=== PATIENT | female | born 1990 | race Asian ===

== ENCOUNTER 2023-01-05 13:16 | Inpatient (IN) ==
[2023-01-05 13:58] LABS: Basophils # (auto) 0.03 K/uL (0.00-0.20); Basophils % (auto) 0.2 %; Eosinophils # (auto) 0.01 K/uL (0.00-0.50); Eosinophils % (auto) 0.1 %; Hematocrit (blood only) 39.5 % (37.0-47.0); Hemoglobin 13.5 g/dl (12.0-16.0); Immature Granulocytes # (auto) 0.35 K/uL (0.01-0.20); Immature Granulocytes % (auto) 2.4 %; Lymphocytes # (auto) 0.83 K/uL (1.20-3.40); Lymphocytes % (auto) 5.6 %; Mean Corpuscular Hemoglobin 29.3 pg (25.0-34.0); Mean Corpuscular Hgb Conc 34.2 g/dL (32.0-36.0); Mean Corpuscular Volume 85.9 fL (80.0-100.0); Mean Platelet Volume 10.5 fL (9.4-12.4); Monocytes # (auto) 0.72 K/uL (0.11-0.59); Monocytes % (auto) 4.9 %; Neutrophils # (auto) 12.88 K/uL (1.40-6.50); Neutrophils % (auto) 86.8 %; Platelet Count 164 K/uL (130-400); RDW Coefficient of Variation 12.1 % (11.5-14.5); White Blood Count 14.82 K/ul (4.8-10.8)
[2023-01-05 14:14] LABS: Albumin Globulin Ratio 1.3 (0.9-2); Albumin Level 4.4 gm/dl (3.4-5.0); BUN Creatinine Ratio 14.5 (10-20); Calcium 9.1 mg/dl (8.6-10.3); Creatinine Clr Calc Pharmacy 95.9 ml/min; Est GFR (African American) 119.5 ml/min; Est GFR (Non-African American) 103.1 ml/min; Globulin 3.5 gm/dl (2.5-4.0); Potassium 3.5 mmol/L (3.5-5.1); Total Protein 7.9 gm/dl (6.0-8.3)
[2023-01-05] MEDS ORDERED: SODIUM CHLORIDE 0.9% 1,000 ML IV ONE (14:23)
[2023-01-05] MEDS ORDERED: ONDANSETRON INJ 2 MG/ML 2 ML VIAL IV STA (14:23)
[2023-01-05] MEDS ORDERED: MoRPHine SULFATE 4 MG/ML 1 ML CARP\\VIAL IV STA (14:23)
--- NOTE | 2023-01-05 14:24 | Emergency Department Note ---
Impression & Plan Acute appendicitis ADMIT ED Provider Note HPI: History obtained from patient. The patient is a otherwise healthy 32yo female who presents emergency department with a chief complaint of upper abdominal pain. Patient states she has had some pain mostly in her upper abdomen since yesterday. Pain has been relatively consistent. Patient did have an episode of vomiting this morning. On arrival here to the ED the patient is hemodynamically stable, she is otherwise in no acute distress on my initial assessment. ROS: - Per HPI Differential Diagnosis: Acute cholecystitis, acute gastritis, acute pancreatitis, small bowel obstruction, diverticulitis flare, acute appendicitis, ectopic , amongst other potential pathologies. *Outpatient medications and allergy history reviewed. 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 Lab work shows a leukocytosis of 14.8, hemoglobin is normal, platelet count is normal, CMP does not show any critical findings, testing is negative. Urinalysis shows 4+ ketones but no clear evidence of infection. Urinalysis is noted to be contaminated. Patient denies any dysuria, low suspicion for UTI. CT imaging of the abdomen pelvis was obtained that shows evidence of acute appendicitis without perforation. Patient was ordered IV Zosyn and blood cultur es were ordered. I Discussed these findings with on-call general surgery, Dr. Matthews, who did evaluate the patient at the bedside for operative intervention, patient will be admitted to the general surgery service for further management. Patient and her significant other at the bedside are in agreement to the above plan and the patient was placed for admission in stable condition. Consultants/Discussions held with other healthcare providers: -General surgery, Dr. Matthews Disposition discussion held by myself with: -Patient and significant other at the bedside Diagnosis: 1. Acute appendicitis 2. Abdominal pain, acute 3. Nausea and vomiting, acute 4. Leukocytosis, acute 5. Ketonuria, acute Disposition: Admission Les Echevarria DO Emergency Medicine Past Med/Surg History Social History Smoking Status: Never smoker Feels Safe at Home: Yes Allergies Allergies Allergy/AdvReac Type Severity Reaction Status Date / Time No Known Allergies Allergy Unverified 01/05/23 16:06 Home Meds Home Medications Medication Instructions Recorded Confirmed No Known Home Medications 01/05/23 01/05/23 Results & Data (ED) Vital Signs Vital Signs - 24 hr 01/05/23 13:17 01/05/23 14:13 01/05/23 14:18 Temperature 36.7 C Temperature Source Skin Pulse Rate 60 57 L 62 Pulse Rate [Apical] Pulse Rhythm Regular Pulse Rhythm [Apical] Pulse Strength [Apical] Respiratory Rate 18 14 Respiratory Effort / Characteristics Respiratory Depth Respiratory Pattern Blood Pressure 103/68 Blood Pressure [Left Arm] Blood Pressure Mean 79 Blood Pressure Mean [Left Arm] Pulse Oximetry 100 100 Oxygen Delivery Method Room Air Sepsis Recent Fever Within 48 Hours No Sepsis New/Unexplained Change in Mental Status No Sepsis Action Taken by Nursing No Action Required 01/05/23 15:21 Temperature Temperature Source Pulse Rate Pulse Rate [Apical] 84 Pulse Rhythm Pulse Rhythm [Apical] Regular Pulse Strength [Apical] Normal Respiratory Rate 12 Respiratory Effort / Characteristics Non-Labored Spontaneous Respiratory Depth Normal Respiratory Pattern Regular Blood Pressure Blood Pressure [Left Arm] 111/75 Blood Pressure Mean Blood Pressure Mean [Left Arm] 87 Pulse Oximetry 100 Oxygen Delivery Method Room Air Sepsis Recent Fever Within 48 Hours Sepsis New/Unexplained Change in Mental Status Sepsis Action Taken by Nursing Laboratory Data 01/05/23 13:27 01/05/23 13:27 Lab Results 01/05/23 01/05/23 01/05/23 Range/Units 13:27 13:27 13:27 WBC 14.82 H (4.8-10.8) K/ul RBC 4.60 (4.20-5.40) M/uL Hgb 13.5 (12.0-16.0) g/dl Hct 39.5 (37.0-47.0) % MCV 85.9 (80.0-100.0) fL MCH 29.3 (25.0-34.0) pg MCHC 34.2 (32.0-36.0) g/dL RDW Std Deviation 38.0 (36.4-46.3) fL RDW Coeff of Talia 12.1 (11.5-14.5) % Plt Count 164 (130-400) K/uL MPV 10.5 (9.4-12.4) fL Immature Gran % (Auto) 2.4 % Neut % (Auto) 86.8 % Lymph % (Auto) 5.6 % [place] % (Auto) 4.9 % Eos % (Auto) 0.1 % Baso % (Auto) 0.2 % Neut # (Auto) 12.88 H (1.40-6.50) K/uL Lymph # (Auto) 0.83 L (1.20-3.40) K/uL [place] # (Auto) 0.72 H (0.11-0.59) K/uL Eos # (Auto) 0.01 (0.00-0.50) K/uL Baso # (Auto) 0.03 (0.00-0.20) K/uL Immature Gran # (Auto) 0.35 H (0.01-0.20) K/uL Sodium 135 L (136-145) mmol/L Potassium 3.5 (3.5-5.1) mmol/L Chloride 104 (98-107) mmol/L Carbon Dioxide 23 (21-32) mmol/L Anion Gap 8 (3-11) BUN 11 (6-23) mg/dl Creatinine 0.76 (0.6-1.2) mg/dl Est Cr Clr Drug Dosing 95.9 ml/min Est GFR ( Amer) 119.5 ml/min Est GFR (Non-Af Amer) 103.1 ml/min BUN/Creatinine Ratio 14.5 (10-20) Glucose 109 H (70-99(Fasting)) mg/dl Calcium 9.1 (8.6-10.3) mg/dl Total Bilirubin 1.0 (0.2-1.0) mg/dl AST 14 (13-39) U/L ALT 9 (7-52) U/L Alkaline Phosphatase 40 (34-104) U/L Total Protein 7.9 (6.0-8.3) gm/dl Albumin 4.4 (3.4-5.0) gm/dl Globulin 3.5 (2.5-4.0) gm/dl Albumin/Globulin Ratio 1.3 (0.9-2) Lipase 18 (11-82) U/L HCG, Qual Negative (Negative) Urine Color Urine Appearance (Clear) Urine pH (4.5-7.5) Ur Specific [place] (1.000-1.030) Urine Protein (Negative) Urine Glucose (UA) (Negative) Urine Ketones (Negative) Urine Blood (Negative) Urine Nitrite (Negative) Urine Bilirubin (Negative) Urine Urobilinogen (Negative) Ur Leukocyte Esterase (Negative) Urine WBC (Auto) (0-5) /hpf Urine RBC (Auto) (0-4) /hpf U Hyaline Cast (Auto) (0-5) /lpf U Epithel Cells (Auto) (0-5) /lpf Urine Bacteria (Auto) (Negative) 01/05/23 Range/Units 14:36 WBC (4.8-10.8) K/ul RBC (4.20-5.40) M/uL Hgb (12.0-16.0) g/dl Hct (37.0-47.0) % MCV (80.0-100.0) fL MCH (25.0-34.0) pg MCHC (32.0-36.0) g/dL RDW Std Deviation (36.4-46.3) fL RDW Coeff of Talia (11.5-14.5) % Plt Count (130-400) K/uL MPV (9.4-12.4) fL Immature Gran % (Auto) % Neut % (Auto) % Lymph % (Auto) % [place] % (Auto) % Eos % (Auto) % Baso % (Auto) % Neut # (Auto) (1.40-6.50) K/uL Lymph # (Auto) (1.20-3.40) K/uL [place] # (Auto) (0.11-0.59) K/uL Eos # (Auto) (0.00-0.50) K/uL Baso # (Auto) (0.00-0.20) K/uL Immature Gran # (Auto) (0.01-0.20) K/uL Sodium (136-145) mmol/L Potassium (3.5-5.1) mmol/L Chloride (98-107) mmol/L Carbon Dioxide (21-32) mmol/L Anion Gap (3-11) BUN (6-23) mg/dl Creatinine (0.6-1.2) mg/dl Est Cr Clr Drug Dosing ml/min Est GFR ( Amer) ml/min Est GFR (Non-Af Amer) ml/min BUN/Creatinine Ratio (10-20) Glucose (70-99(Fasting)) mg/dl Calcium (8.6-10.3) mg/dl Total Bilirubin (0.2-1.0) mg/dl AST (13-39) U/L ALT (7-52) U/L Alkaline Phosphatase (34-104) U/L Total Protein (6.0-8.3) gm/dl Albumin (3.4-5.0) gm/dl Globulin (2.5-4.0) gm/dl Albumin/Globulin Ratio (0.9-2) Lipase (11-82) U/L HCG, Qual (Negative) Urine Color Yellow Urine Appearance Cloudy A (Clear) Urine pH 7.0 (4.5-7.5) Ur Specific [place] 1.030 (1.000-1.030) Urine Protein Trace H (Negative) Urine Glucose (UA) Negative (Negative) Urine Ketones 4+ H (Negative) Urine Blood Negative (Negative) Urine Nitrite Negative (Negative) Urine Bilirubin Negative (Negative) Urine Urobilinogen Negative (Negative) Ur Leukocyte Esterase 1+ H (Negative) Urine WBC (Auto) 10-30 H (0-5) /hpf Urine RBC (Auto) 0-4 (0-4) /hpf U Hyaline Cast (Auto) 5-10 H (0-5) /lpf U Epithel Cells (Auto) >30 H (0-5) /lpf Urine Bacteria (Auto) 1+ H (Negative) Administered Medications Discontinued Medications Sodium Chloride (Nss) 1,000 mls @ 999 mls/hr IV .Q1H1M ONE Stop: 01/05/23 15:23 Last Infusion: 01/05/23 15:38 Dose: 0 mls/hr Documented By: Admin: 01/05/23 14:30 Dose: 999 mls/hr Documented By: CAMILLA Ioversol (Optiray 320 100ml) 91 ml IV ONCE ONE Stop: 01/05/23 15:21 Last Admin: 01/05/23 15:14 Dose: 91 ml Documented By: LARRY Morphine Sulfate (Morphine Sulfate 4 Mg/Ml 1 Ml Carp\Vial) 4 mg IV NOW STA Stop: 01/05/23 14:24 Last Admin: 01/05/23 14:31 Dose: 4 mg Documented By: CAMILLA Ondansetron HCl (Ondansetron Inj 2 Mg/Ml 2 Ml Vial) 4 mg IV NOW STA Stop: 01/05/23 14:24 Last Admin: 01/05/23 14:31 Dose: 4 mg Documented By: CAMILLA Imaging Data Radiologist's Impression: Abdomen/Pelvis CT 01/05/23 14:22 CT SCAN OF THE ABDOMEN AND PELVIS WITH IV CONTRAST CLINICAL HISTORY: Epigastric abdominal pain. Nausea. COMPARISON STUDY: No priors. TECHNIQUE: Following the IV administration of 91 cc of Optiray 320, CT scan of the abdomen and pelvis is performed from the lung bases to the proximal femora. Images are reviewed in the axial, sagittal, and coronal planes. IV contrast was administered without complication. A dose lowering technique was utilized adhering to the principles of ALARA. CT DOSE: 458.81 mGy.cm FINDINGS: Lung bases: The heart is normal in size and without pericardial effusion. The lung bases are clear. Liver: The contrast-enhanced liver is normal in size, contour, and attenuation. There is no intrahepatic biliary ductal dilatation. The hepatic veins and portal veins are patent. Periportal edema is noted, likely related to hydration status. Gallbladder: Unremarkable. Spleen: Normal in size and attenuation. Pancreas: Unremarkable. Adrenal glands: Unremarkable. Kidneys: The contrast enhanced kidneys are normal in size and without hydr onephrosis. The kidneys enhance symmetrically. Abdominal vasculature: The abdominal aorta is normal in course and caliber. Bowel: The small bowel and colon are normal in course and caliber. The appendix is dilated and fluid-filled, measuring up to 10 mm in diameter as seen on axial image #248. A large calcified appendicolith is seen on axial image #246. The appendiceal wall is thickened and there is presence of inflammation. Findings are consistent with acute appendicitis. No fluid collection is seen to suggest abscess. Peritoneum: There is no intraperitoneal free air or abdominal ascites. Lymphadenopathy: None. Pelvic viscera: The bladder is decompressed and grossly unremarkable. Uterus and adnexa are normal as visualized. There is a small volume of free fluid in the cul-de-sac. Skeletal structures: No lytic or blastic lesions are seen. Mild sclerotic changes noted in the sacroiliac joints. IMPRESSION: 1. Acute appendicitis. 2. There is no evidence of abscess or perforation. 3. There is a small volume of nonspecific free fluid in the cul-de-sac. ACT 112: Negative or not required by law. Electronically signed by: Chuck Saucedo M.D. 01/05/2023 3:44 PM Discharge Plan Visit Data Chief Complaint: Abdominal Pain Stated Complaint: ABDOMINAL PAIN ED Provider: Les Echevarria Discharge Problem: Acute appendicitis Forms Stand Alone Forms: [facility] Prescriptions Prescriptions: No Action No Known Home Medications Referrals Referrals: [place] [Primary Care Provider] -
[2023-01-05 14:30] LABS: Pregnancy Test, Serum Negative (Negative)
[2023-01-05 15:06] LABS: Appearance Urine Cloudy (Clear); Bacteria Urine Automated 1+ (Negative); Bilirubin Urine Negative (Negative); Blood Urine Negative (Negative); Color Urine Yellow; Epithelial Cell Urine Auto >30 /lpf (0-5); Glucose Urine UA Negative (Negative); Ketones Urine 4+ (Negative); Leukocyte Esterase Urine 1+ (Negative); Nitrite Urine Negative (Negative); Protein Urine Trace (Negative); RBC Urine Automated 0-4 /hpf (0-4); Urobilinogen Urine Negative (Negative)
[2023-01-05] MEDS ORDERED: OPTIRAY 320 100ml IV ONE (15:20)
--- NOTE | 2023-01-05 15:46 | CT Scan Report ---
CT SCAN OF THE ABDOMEN AND PELVIS WITH IV CONTRAST CLINICAL HISTORY: Epigastric abdominal pain. Nausea. COMPARISON STUDY: No priors. TECHNIQUE: Following the IV administration of 91 cc of Optiray 320, CT scan of the abdomen and pelvi s is performed from the lung bases to the proximal femora. Images are reviewed in the axial, sagittal , and coronal planes. IV contrast was administered without complication. A dose lowering technique wa s utilized adhering to the principles of ALARA. CT DOSE: 458.81 mGy.cm FINDINGS: Lung bases: The heart is normal in size and without pericardial effusion. The lung bases are clear. Liver: The contrast-enhanced liver is normal in size, contour, and attenuation. There is no intrahepa tic biliary ductal dilatation. The hepatic veins and portal veins are patent. Periportal edema is not ed, likely related to hydration status. Gallbladder: Unremarkable. Spleen: Normal in size and attenuation. Pancreas: Unremarkable. Adrenal glands: Unremarkable. Kidneys: The contrast enhanced kidneys are normal in size and without hydronephrosis. The kidneys enh ance symmetrically. Abdominal vasculature: The abdominal aorta is normal in course and caliber. Bowel: The small bowel and colon are normal in course and caliber. The appendix is dilated and fluid -filled, measuring up to 10 mm in diameter as seen on axial image #248. A large calcified appendicoli th is seen on axial image #246. The appendiceal wall is thickened and there is presence of inflammati on. Findings are consistent with acute appendicitis. No fluid collection is seen to suggest abscess. Peritoneum: There is no intraperitoneal free air or abdominal ascites. Lymphadenopathy: None. Pelvic viscera: The bladder is decompressed and grossly unremarkable. Uterus and adnexa are normal as visualized. There is a small volume of free fluid in the cul-de-sac. Skeletal structures: No lytic or blastic lesions are seen. Mild sclerotic changes noted in the sacroi liac joints. IMPRESSION: 1. Acute appendicitis. 2. There is no evidence of abscess or perforation. 3. There is a small volume of nonspecific free fluid in the cul-de-sac. ACT 112: Negative or not required by law. Electronically signed by: Chuck Saucedo M.D. 01/05/2023 3:44 PM
[2023-01-05] MEDS ORDERED: PIPERACILLIN/TAZOBACTAM 4.5 GM/100 ML BAG IV ONE (15:49)
--- NOTE | 2023-01-05 17:03 | Surgery Consultation ---
Date of Consultation January 05, 2023 Assessment & Plan (1) Acute appendicitis: Assessment: Patient is a 32 years old female who presented to ED with a 1 day history of abdominal pain. Patient had a CT scan diagnosis of acute appendicitis with a large calcified appendicolith. WBC 15,000 Plan: Based on the patient history physical exam, lab, and CT finding- diagnosis acute appendicitis. I recommend to do laparoscopy appendectomy possible open. I did talk to patient about benefits the risk and alternate of the procedure. I indicated the risks may include but not limited such as a bleeding, infection, abscess, injury to other organs, bowel obstruction, and incisional hernia. Patient understood. she signed informed consent. I answered all questions. pre-op IV antibiotic. History of Present Illness Reason for Consultation: acute appendictis Requesting Physician: Les Parmar History of Present Illness CC: abdominal pain HPI: Patient is a 62 years old female otherwise healthy presented to ED with a 1 day history epigastric and periumbilical pain. The pain is a constant. Notes most the abdominal pain located in the right lower quadrant area. The pain is rated about a 6/10. there is a nausea and vomiting earlier this morning. Patient denies any fever, no diarrhea, no dysuria. Labs show WBC 15,000. Patient had a CT scan diagnosis of acute appendicitis with A large calcified appendicolith. Patient has been n.p.o. all day. Allergies Allergy/AdvReac Type Severity Reaction Status Date / Time No Known Allergies Allergy Unverified 01/05/23 16:06 Home Medications Medication Instructions Recorded Confirmed Type No Known Home Medications 01/05/23 01/05/23 History Patient History Social History Smoking Status: Never smoker Feels Safe at Home: Yes Review of Systems Constitutional: as per Subjective / HPI Eyes: as per Subjective / HPI Respiratory: as per Subjective / HPI Cardiovascular: as per Subjective / HPI Gastrointestinal: as per Subjective / HPI Genitourinary: as per Subjective / HPI Musculoskeletal: as per Subjective / HPI Neurologic: as per Subjective / HPI Psychiatric: as per Subjective / HPI Endocrine: as per Subjective / HPI Hematologic / Lymphatic: as per Subjective / HPI Physical Exam Constitutional: WD/WN, vitals as above mild distress Eyes: PERRL, conjunctivae normal, anicteric sclerae Neck: trachea midline, no thyromegaly Respiratory: normal respiratory effort, lungs clear to auscultation Cardiovascular: RRR, no murmur, no edema Gastrointestinal (Abdomen): soft. tenderness at RLQ, no rebound pain, no distend, BS +. Musculoskeletal: no cyanosis or clubbing, extremities motor strength 5/5 Neurologic: patellar DTR's 2+ bilat, sensation intact Psychiatric: A+Ox3, euthymic affect Results & Data Vital Signs (Past 12 Hours) Vital Signs Temp Pulse Pulse Resp BP BP Pulse Ox 01/05/23 15:21 84 12 111/75 100 01/05/23 14:18 62 01/05/23 14:13 57 L 14 100 01/05/23 13:17 36.7 C 60 18 103/68 100 O2 Del Method 01/05/23 15:21 Room Air 01/05/23 14:18 01/05/23 14:13 Room Air 01/05/23 13:17 Laboratory Results Lab Results 01/05/23 01/05/23 01/05/23 Range/Units 13:27 13:27 13:27 WBC 14.82 H (4.8-10.8) K/ul RBC 4.60 (4.20-5.40) M/uL Hgb 13.5 (12.0-16.0) g/dl Hct 39.5 (37.0-47.0) % MCV 85.9 (80.0-100.0) fL MCH 29.3 (25.0-34.0) pg MCHC 34.2 (32.0-36.0) g/dL RDW Std Deviation 38.0 (36.4-46.3) fL RDW Coeff of Talia 12.1 (11.5-14.5) % Plt Count 164 (130-400) K/uL MPV 10.5 (9.4-12.4) fL Immature Gran % (Auto) 2.4 % Neut % (Auto) 86.8 % Lymph % (Auto) 5.6 % [place] % (Auto) 4.9 % Eos % (Auto) 0.1 % Baso % (Auto) 0.2 % Neut # (Auto) 12.88 H (1.40-6.50) K/uL Lymph # (Auto) 0.83 L (1.20-3.40) K/uL [place] # (Auto) 0.72 H (0.11-0.59) K/uL Eos # (Auto) 0.01 (0.00-0.50) K/uL Baso # (Auto) 0.03 (0.00-0.20) K/uL Immature Gran # (Auto) 0.35 H (0.01-0.20) K/uL Sodium 135 L (136-145) mmol/L Potassium 3.5 (3.5-5.1) mmol/L Chloride 104 (98-107) mmol/L Carbon Dioxide 23 (21-32) mmol/L Anion Gap 8 (3-11) BUN 11 (6-23) mg/dl Creatinine 0.76 (0.6-1.2) mg/dl Est Cr Clr Drug Dosing 95.9 ml/min Est GFR ( Amer) 119.5 ml/min Est GFR (Non-Af Amer) 103.1 ml/min BUN/Creatinine Ratio 14.5 (10-20) Glucose 109 H (70-99(Fasting)) mg/dl Calcium 9.1 (8.6-10.3) mg/dl Total Bilirubin 1.0 (0.2-1.0) mg/dl AST 14 (13-39) U/L ALT 9 (7-52) U/L Alkaline Phosphatase 40 (34-104) U/L Total Protein 7.9 (6.0-8.3) gm/dl Albumin 4.4 (3.4-5.0) gm/dl Globulin 3.5 (2.5-4.0) gm/dl Albumin/Globulin Ratio 1.3 (0.9-2) Lipase 18 (11-82) U/L HCG, Qual Negative (Negative) Urine Color Urine Appearance (Clear) Urine pH (4.5-7.5) Ur Specific [place] (1.000-1.030) Urine Protein (Negative) Urine Glucose (UA) (Negative) Urine Ketones (Negative) Urine Blood (Negative) Urine Nitrite (Negative) Urine Bilirubin (Negative) Urine Urobilinogen (Negative) Ur Leukocyte Esterase (Negative) Urine WBC (Auto) (0-5) /hpf Urine RBC (Auto) (0-4) /hpf U Hyaline Cast (Auto) (0-5) /lpf U Epithel Cells (Auto) (0-5) /lpf Urine Bacteria (Auto) (Negative) 01/05/23 Range/Units 14:36 WBC (4.8-10.8) K/ul RBC (4.20-5.40) M/uL Hgb (12.0-16.0) g/dl Hct (37.0-47.0) % MCV (80.0-100.0) fL MCH (25.0-34.0) pg MCHC (32.0-36.0) g/dL RDW Std Deviation (36.4-46.3) fL RDW Coeff of [place]ia (11.5-14.5) % Plt Count (130-400) K/uL MPV (9.4-12.4) fL Immature Gran % (Auto) % Neut % (Auto) % Lymph % (Auto) % [place] % (Auto) % Eos % (Auto) % Baso % (Auto) % Neut # (Auto) (1.40-6.50) K/uL Lymph # (Auto) (1.20-3.40) K/uL [place] # (Auto) (0.11-0.59) K/uL Eos # (Auto) (0.00-0.50) K/uL Baso # (Auto) (0.00-0.20) K/uL Immature Gran # (Auto) (0.01-0.20) K/uL Sodium (136-145) mmol/L Potassium (3.5-5.1) mmol/L Chloride (98-107) mmol/L Carbon Dioxide (21-32) mmol/L Anion Gap (3-11) BUN (6-23) mg/dl Creatinine (0.6-1.2) mg/dl Est Cr Clr Drug Dosing ml/min Est GFR ( Amer) ml/min Est GFR (Non-Af Amer) ml/min BUN/Creatinine Ratio (10-20) Glucose (70-99(Fasting)) mg/dl Calcium (8.6-10.3) mg/dl Total Bilirubin (0.2-1.0) mg/dl AST (13-39) U/L ALT (7-52) U/L Alkaline Phosphatase (34-104) U/L Total Protein (6.0-8.3) gm/dl Albumin (3.4-5.0) gm/dl Globulin (2.5-4.0) gm/dl Albumin/Globulin Ratio (0.9-2) Lipase (11-82) U/L HCG, Qual (Negative) Urine Color Yellow Urine Appearance Cloudy A (Clear) Urine pH 7.0 (4.5-7.5) Ur Specific [place] 1.030 (1.000-1.030) Urine Protein Trace H (Negative) Urine Glucose (UA) Negative (Negative) Urine Ketones 4+ H (Negative) Urine Blood Negative (Negative) Urine Nitrite Negative (Negative) Urine Bilirubin Negative (Negative) Urine Urobilinogen Negative (Negative) Ur Leukocyte Esterase 1+ H (Negative) Urine WBC (Auto) 10-30 H (0-5) /hpf Urine RBC (Auto) 0-4 (0-4) /hpf U Hyaline Cast (Auto) 5-10 H (0-5) /lpf U Epithel Cells (Auto) >30 H (0-5) /lpf Urine Bacteria (Auto) 1+ H (Negative) Diagnostic Findings CT SCAN OF THE ABDOMEN AND PELVIS WITH IV CONTRAST CLINICAL HISTORY: Epigastric abdominal pain. Nausea. COMPARISON STUDY: No priors. TECHNIQUE: Following the IV administration of 91 cc of Optiray 320, CT scan of the abdomen and pelvis is performed from the lung bases to the proximal femora. Images are reviewed in the axial, sagittal, and coronal planes. IV contrast was administered without complication. A dose lowering technique was utilized adhering to the principles of ALARA. CT DOSE: 458.81 mGy.cm FINDINGS: Lung bases: The heart is normal in size and without pericardial effusion. The lung bases are clear. Liver: The contrast-enhanced liver is normal in size, contour, and attenuation. There is no intrahepatic biliary ductal dilatation. The hepatic veins and portal veins are patent. Periportal edema is noted, likely related to hydration status. Gallbladder: Unremarkable. Spleen: Normal in size and attenuation. Pancreas: Unremarkable. Adrenal glands: Unremarkable. Kidneys: The contrast enhanced kidneys are normal in size and without hydronephrosis. The kidneys enhance symmetrically. Abdominal vasculature: The abdominal aorta is normal in course and caliber. Bowel: The small bowel and colon are normal in course and caliber. The appendix is dilated and fluid-filled, measuring up to 10 mm in diameter as seen on axial image #248. A large calcified appendicolith is seen on axial image #246. The appendiceal wall is thickened and there is presence of inflammation. Findings are consistent with acute appendicitis. No fluid collection is seen to suggest abscess. Peritoneum: There is no intraperitoneal free air or abdominal ascites. Lymphadenopathy: None. Pelvic viscera: The bladder is decompressed and grossly unremarkable. Uterus and adnexa are normal as visualized. There is a small volume of free fluid in the cul-de-sac. Skeletal structures: No lytic or blastic lesions are seen. Mild sclerotic changes noted in the sacroiliac joints. IMPRESSION: 1. Acute appendicitis. 2. There is no evidence of abscess or perforation. 3. There is a small volume of nonspecific free fluid in the cul-de-sac.
--- NOTE | 2023-01-05 17:08 | History & Physical Bridge Note ---
Date of Service January 05, 2023 History & Physical Bridge Note I have examined the patient, reviewed the History & Physical and in the interval since the performance of the History & Physical I have noted the following changes of clinical significance: no changes noted
--- NOTE | 2023-01-05 17:28 | Anesthesiology Consultation ---
Date of Service January 05, 2023 Assessment & Plan (1) Encounter for pre-operative examination: Chart Review Chart Review: Acceptable Risk for Surgery and Patient NOT seen in Pre Admission Testing Consults Requested none History Surgery Operation Date: 01/05/23 15:35 Proposed Procedures p Laparoscopic Appendectomy - Shanita Matthews MD Height/Weight Height: 5 ft 6.14 in Weight: 57.7 kg Allergies Allergy/AdvReac Type Severity Reaction Status Date / Time No Known Allergies Allergy Unverified 01/05/23 16:06 Medications Home Medications Medication Instructions Recorded Confirmed Last Taken No Known Home Medications 01/05/23 01/05/23 Unknown Social History Smoking Status: Never smoker Physical Exam Vital Signs Last Vital Signs Temp 98.1 F 01/05/23 13:17 Pulse 73 01/05/23 17:00 Resp 16 01/05/23 17:00 BP 114/70 01/05/23 17:00 Pulse Ox 100 01/05/23 17:00 O2 Del Method Room Air 01/05/23 17:00 Testing Laboratory Results 01/05/23 13:27 01/05/23 13:27 Urine Color Yellow 01/05/23 14:36 Urine Appearance Cloudy (Clear) A 01/05/23 14:36 Urine pH 7.0 (4.5-7.5) 01/05/23 14:36 Ur Specific [place] 1.030 (1.000-1.030) 01/05/23 14:36 Urine Protein Trace (Negative) H 01/05/23 14:36 Urine Glucose (UA) Negative (Negative) 01/05/23 14:36 Urine Ketones 4+ (Negative) H 01/05/23 14:36 Urine Nitrite Negative (Negative) 01/05/23 14:36 Ur Leukocyte Esterase 1+ (Negative) H 01/05/23 14:36 Urine WBC (Auto) 10-30 /hpf (0-5) H 01/05/23 14:36 Urine RBC (Auto) 0-4 /hpf (0-4) 01/05/23 14:36 U Hyaline Cast (Auto) 5-10 /lpf (0-5) H 01/05/23 14:36 U Epithel Cells (Auto) >30 /lpf (0-5) H 01/05/23 14:36 Urine Bacteria (Auto) 1+ (Negative) H 01/05/23 14:36
[2023-01-05] MEDS ORDERED: MIDAZOLAM HCL 1 MG/ML 2ML VIAL ONE (17:56)
[2023-01-05] MEDS ORDERED: PROPOFOL IV EMULSION 10 MG/ML 20 ML VIAL IV ONE (17:56)
[2023-01-05] MEDS ORDERED: fentaNYL citrate PF 100 MCG/2 ML VIAL ONE ×2 (17:57→19:02)
[2023-01-05] MEDS ORDERED: fentaNYL citrate PF 100 MCG/2 ML VIAL IV PRN (18:05)
[2023-01-05] MEDS ORDERED: ePHEDrine sulfate 50 MG/ML AMP IV PRN (18:05)
[2023-01-05] MEDS ORDERED: ONDANSETRON INJ 2 MG/ML 2 ML VIAL IV PRN (18:05)
[2023-01-05] MEDS ORDERED: ATROPINE SULFATE 0.1 MG/ML 10ML SYR IV PRN (18:05)
[2023-01-05] MEDS ORDERED: BUPIVACAINE 0.5 % 5 MG/1 ML MPF 30ML VIAL ONE (18:34)
[2023-01-05] MEDS ORDERED: LIDOCAINE 1% LOCAL 20 ML VIAL ONE (18:34)
[2023-01-05] MEDS ORDERED: BACITRACIN OINT 14 GM TUBE ONE (18:34)
[2023-01-05] MEDS ORDERED: KETOROLAC 30 MG/ML VIAL ONE (19:31)
[2023-01-05] MEDS ORDERED: ONDANSETRON INJ 2 MG/ML 2 ML VIAL ONE (19:31)
[2023-01-05] MEDS ORDERED: GLYCOPYRROLATE 0.2 MG/ML VIAL ONE (19:31)
[2023-01-05] MEDS ORDERED: ROCURONIUM BROMIDE 10 MG/ML 5 ML VIAL IV ONE (19:31)
[2023-01-05] MEDS ORDERED: NEOSTIGMINE METHYLSULFATE 1 MG/ML 10ML VIAL ONE (19:31)
[2023-01-05] MEDS ORDERED: DEXAMETHASONE SOD INJ 4 MG/ML VIAL ONE (19:31)
--- NOTE | 2023-01-05 19:54 | Post Operative Brief Note ---
Immediate Post Op Note v1 Date of Surgery January 05, 2023 Pre & Post Diagnosis Operation Date: 01/05/23 15:35 pre-op diagnosis: acute appendicitis post-op diagnosis: acute appendicitis I identified the patient and participated in the time-out.: Yes Procedure Operation Date: 01/05/23 15:35 laparoscopic appendectomy Surgeon Shanita Matthews MD Record Changer technical internship Estimated Blood Loss 10 Findings Consistent with Post-Op Diagnosis acute appendicitis Fluids 1000ml Specimens appendix Drains Stephenson Catheter (inserted at beginning of procedure by Sammie Oleary. ) Anesthesia Type General Complications none Disposition Accompanied Patient To Recovery: Yes
--- NOTE | 2023-01-05 20:11 | Operative Report ---
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 Patient had a CT scan diagnosis of acute appendicitis with a large calcified appendicolith. WBC 15,000 Plan: Based on the patient history physical exam, lab, and CT finding- diagnosis acute appendicitis. I recommend to do laparoscopy appendectomy possible open. I did talk to patient about benefits the risk and alternate of the procedure. I indicated the risks may include but not limited such as a bleeding, infection, abscess, injury to other organs, bowel obstruction, and incisional hernia. Patient understood. she signed informed consent. I answered all questions. pre-op IV antibiotic. Description of Procedure After we identified patient to verify procedure. We brought patient to the OR. Put the patient on the supine position on the OR table. Patient received a SCD on bilateral legs to prevent DVT. Also patient received 4.5 gram Zosyn IV for prophylactic antibiotic. Patient received general anesthesia without difficulty. pt had Stephenson catheter insertion to drainage urine. The abdomen was propped and dropped in routine sterile fashion. After timeout. I injections of local anesthesia by using 1% lidocaine mixed with 0.5% Marcaine just above the umbilical area. The make a small incisions as above umbilical, open fascia and peritoneum under direct vision. put The Medrano trocar in. Connected to CO2 to create pneumoperitoneum, the flow rate is 6 L/min. Pressure no more than 14 mmHg. Once get nice pneumoperitoneum. Put a scopy in to take look around the abdomen. Significant inflammation on the right lower quadrant area. then we put other two 5 mm trocars on the left lower quadrant area. We used a grasper to to hold cecum area. We found the patient had enlarge appendix with inflammation on appendix, which confirm diagnosis acute appendicitis. We mobilized the appendix by using a harmonic to take down the appendiceal. I used the 45 mm Endo JO ANN staple transection on the base of appendix. With double identified the base of appendix. Recheck and no active bleeding or leak from staplers. We remove appendix through the catheter bag. then re-inserted a Medrano trocar IN and connected to CO2 to create pneumoperitoneum again. Hemostat is obtained. We removed all trocars under direct vision no active bleeding from trocar site. Pneumoperitoneum was released. Close umbilical incision fascia layer by using 0 Vicryl [id number] x2. Closed subcutaneous layer by using 2-0 Vicryl interrupted. Close skin by using 4-0 Vicryl. Close another 5 mm trocar site the skin only by use of 4-0 Vicryl. Put the dressing on. Remove Stephenson catheter. Patient tolerated procedure well. All instrument needle sponge count correct x2 in the case. Patient was transferred to recovery room in stable condition. Specimen sent to pathology. After procedure I did talk to patient about the OR finding and the procedure we did. They understood. I attest to the content of the Intraoperative Record and any orders documented therein. Any exceptions are noted below.
--- NOTE | 2023-01-05 20:34 | Anesthesiology Progress Note ---
Date of Service January 05, 2023 Anesthesia Post Procedure Vital Signs Vital Signs: Temp Pulse Pulse Resp BP BP Pulse Ox 01/05/23 20:30 98.6 F 61 13 108/67 100 01/05/23 20:20 67 18 115/71 100 01/05/23 20:10 68 17 114/72 100 01/05/23 20:03 97.7 F 86 18 95/70 L 98 01/05/23 17:52 99.5 F 62 16 106/66 99 01/05/23 17:35 72 16 121/78 99 01/05/23 17:00 73 16 114/70 100 01/05/23 15:21 84 12 111/75 100 01/05/23 14:18 62 01/05/23 14:13 57 L 14 100 01/05/23 13:17 98.1 F 60 18 103/68 100 O2 Del Method O2 Flow Rate 01/05/23 20:30 Room Air 01/05/23 20:20 Nasal Cannula 2 01/05/23 20:10 Nasal Cannula 2 01/05/23 20:03 Nasal Cannula 3 01/05/23 17:52 Room Air 01/05/23 17:35 Room Air 01/05/23 17:00 Room Air 01/05/23 15:21 Room Air 01/05/23 14:18 01/05/23 14:13 Room Air 01/05/23 13:17 Pain Intensity Medial Abdomen: Pain Intensity: 8 Transfer of Care Handoff Completed per policy Notes Mental Status: alert / awake / arousable and participated in evaluation Patient Amnestic to Procedure: Yes Nausea / Vomiting: adequately controlled Pain: adequately controlled Airway Patency, RR, SpO2: stable & adequate BP & HR: stable & adequate Hydration State: stable & adequate Anesthetic Complications: no major complications apparent and Pt Satisfied with anesthetic care
[2023-01-05] MEDS ORDERED: oxyCODONE/ACETAMINOPHEN 5mg/325mg TAB PO PRN (20:51)
[2023-01-05] MEDS ORDERED: HYDROmorphone INJ 0.5 MG/0.5 ML SYR IV PRN (20:51)
[2023-01-05] MEDS: LACTATED RINGER'S 1,000 ML IV SCH (21:09)
[2023-01-06 07:42] LABS: Basophils # (auto) 0.02 K/uL (0.00-0.20); Basophils % (auto) 0.2 %; Hematocrit (blood only) 33.5 % (37.0-47.0); Hemoglobin 11.5 g/dl (12.0-16.0); Immature Granulocytes # (auto) 0.05 K/uL (0.01-0.20); Immature Granulocytes % (auto) 0.4 %; Lymphocytes % (auto) 6.9 %; Mean Corpuscular Hemoglobin 29.7 pg (25.0-34.0); Mean Corpuscular Hgb Conc 34.3 g/dL (32.0-36.0); Mean Corpuscular Volume 86.6 fL (80.0-100.0); Mean Platelet Volume 10.7 fL (9.4-12.4); Monocytes # (auto) 0.53 K/uL (0.11-0.59); Monocytes % (auto) 4.5 %; Neutrophils # (auto) 10.25 K/uL (1.40-6.50); Platelet Count 139 K/uL (130-400); RDW Coefficient of Variation 12.2 % (11.5-14.5); RDW Standard Deviation 38.8 fL (36.4-46.3); Red Blood Count 3.87 M/uL (4.20-5.40); White Blood Count 11.65 K/ul (4.8-10.8)
--- NOTE | 2023-01-06 10:32 | Discharge Summary ---
Date of Service January 06, 2023 Admission HPI Per Admitting Provider Patient is a 62 years old female otherwise healthy presented to ED with a 1 day history epigastric and periumbilical pain. The pain is a constant. Notes most the abdominal pain located in the right lower quadrant area. The pain is rated about a 6/10. there is a nausea and vomiting earlier this morning. Patient denies any fever, no diarrhea, no dysuria. Labs show WBC 15,000. Patient had a CT scan diagnosis of acute appendicitis withA large calcified appendicolith. Patient has been n.p.o. all day. Principal Diagnosis Acute appendicitis Discharge Exam Constitutional WD/WN, vitals as above cooperative and comfortable; no acute distress and not ill appearing Respiratory normal respiratory effort; no respiratory distress Gastrointestinal (Abdomen) Inspection/Auscultation: abdomen normal to inspection and + abdominal surgical incision (covered with dressings, mild spotting present.); abdomen not distended Percussion/Palpation: + abdomen tender (at incision sites appropriate postop) and abdomen soft; no guarding and abdomen not rigid Skin no rashes, warm and dry Psychiatric A+Ox3, euthymic affect Discharge Data Allergies Allergy/AdvReac Type Severity Reaction Status Date / Time No Known Allergies Allergy Unverified 01/05/23 16:06 Consultations 01/05/23 16:00 Consult General Surgery Stat 01/05/23 16:43 ED Decision to Admit Stat Procedures Performed Operation Date: 01/05/23 15:35 Actual Procedures p Laparoscopic Appendectomy(Not Applicable) - Shanita Matthews MD Ordered Studies 01/05/23 14:22 CT Abd and Pelvis [CT abd pelvis IV con only] Stat Hospital Course (1) Acute appendicitis: Patient taken to operating room for laparoscopic appendectomy by Dr. Matthews on 01/05/2023. Patient found to have acute appendicitis without perforation or abscess. Patient tolerated procedure without difficulty and transferred to recovery then to medical/surgical floor for postoperative care. Diet advanced to clear liquids, activity as tolerated, PO Pain medication with Percocet as needed, antiemetics as needed, and IV Cefoxitin. POD # 1 avss, leukocytosis improved to 11,000, postop pain controlled and tolerating clear liquids and ambulating hallway. Patient was discharged home on POD # 1 in stable condition. Total Time Total Time Spent Total Time Spent (In Minutes): 20 Total Time Includes: Examination of the Patient, Discharge Planning and Medication Reconciliation Discharge Plan Discharge Items Patient Disposition: Home - Self-Care Reason For Visit: VOMITING, LOWER ABDOMINAL PAIN Discharge Diagnosis: Acute appendicitis Activity: Per Instructions section Non-emergency contact: Primary Care Provider and Surgeon Call non-emergency contact if: you have any medication questions, your pain is not controlled, your pain is concerning for you, you have a fever, your temperature is above 101, your wound has increased redness, your wound has increased drainage and your wound pain has increased Follow-up/Referrals: Marsha Barnes PA-C [Physician Supervisor [employer]] - (follow-up in 1-2 weeks ) [facility] [Primary Care Provider] - Diet: Regular Addtl Attending Provider Instructions: Post-Surgical ~Discharge Instructions Activity Recommendations: - lifting limitation: (20 pounds for 3-4 weeks), - exercise/sex/sports limit: (nonstrenuous for 2 weeks), - driving or machine use limit: (none for 1 week or until pain free and no longer taking narcotic pain medication), - Shower/bathe limit: (may shower beginning Thursday) Diet: - Resume previous diet SPECIAL CARE INSTRUCTIONS: - May shower on Thursday, sponge bath and wash hair in meantime. On Thursday, remove outer dressings and shower. Let water run over area and pat dry. - Leave steri strips on for one week and then remove. They may fall off on their own that is okay - Call the surgeon's office with any questions or concerns - - (ex. temperature higher than 101 degrees F, excessive bleeding or pain). MEDICATIONS: - Resume previous medications unless instructed otherwise by your surgeon. - May alternate extra strength Tylenol and Ibuprofen as needed for mild to moderate pain -650 mg Tylenol every 6 hours as needed - Ibuprofen 600 mg every 6 hours as needed (take with food) - Percocet 1 every 6 hours, as needed for moderate to severe pain - Recommend daily to twice a day stool softener (Colace) while taking narcotic pain medication to prevent constipation and straining. Drink plenty of water daily. FOLLOW UP VISIT: - If not already scheduled, please call the office to schedule a one-two week follow-up appointment. Office number Pending Studies at Discharge: Yes (appendix pathology, will be reviewed at postop visit) Stand-Alone Forms: My [facility], Smoking Cessation Medications and DC Order Prescriptions: New oxycodone-acetaminophen 5-325 mg tablet 1 tab PO Q6H PRN (Reason: pain) Qty: 10 0RF Discharge Orders: Discharge Order (Routine); Ordered 01/06/23 Ordered By: Marsha Barnes Admission Data Admit Date/Time: 01/05/23 20:00 Attending Provider: Shanita Matthews Admit Provider: Shanita Matthews Primary Care Provider: [facility] Other Providers: Shanita Matthews
[2023-01-06] MEDS: LACTATED RINGER'S 1,000 ML IV SCH (10:36)
== END 2023-01-06 12:04 | disposition home or self-care (01) | DRG 399 ==
LOC: ED 13:16 → OR 17:40 → 3N 20:00